=== PATIENT | female | born 1970 | race Caucasian/White ===

== ENCOUNTER → 2016-12-27 | Day surgery (SDC) | payer OTHER ==
[2016-12-27] VITALS (11 sets, daily range): BP systolic 97–127; BP diastolic 58–85; PULSE 63–75; RESP 12–24; O2SAT 93–97
[~2016-12-27] VITALS: Ht 160 cm; Wt 105.0 kg
[~2016-12-27] MED LIST: 0.9% Sodium Chloride 1,000 ML IV ONE; ASCO-294 PO; CETI-343 PO; CHOL5000 PO; CITA40TA13 PO; Heparin 1,000 Unit/mL 10 mL Inj ONE; Heparin 1,000 Units/500 mL NS Premix IV ONE; Heparin 10,000 Unit/1,000 mL NS Premix IV ONE; KLO5T PO; Nitroglycerin 50,000 mcg/250 mL D5W Premix IV ONE; Verapamil 2.5 mg/mL 2 mL Inj ONE; ZINC50TA56 PO; [UNRECOGNIZED DRUG - OTHER] PO; fentaNYL-PF 50 mCg/mL 2 mL Inj ONE
[2016-12-27 11:51] LABS: BASOPHILS % (AUTO) 0.6 % (0-3); EOSINOPHILS % (AUTO) 3.1 % (0-5); MONOCYTES % (AUTO) 7.2 % (4-12); Mean Corpuscular Hemoglobin 29.3 pg (27.0-35.0); Mean Corpuscular Volume 86.9 fL (81-100); NEUTROPHILS % (AUTO) 60.1 % (40-74); Platelet Count 287 bil/L (150-400)
--- NOTE | 2016-12-27 12:05 | NUR ---
Admit Admitted to [facility] about 1110. VSS. Tele SR. Denies pain. IV started and labs sent. IVT called for second IV. See EMR for further info and assessment. Procedure and recovery reviewed and verbalizes understanding. Awaiting landscape laborer.
--- NOTE | 2016-12-27 15:08 | NUR ---
Received To collaborative teacher about 1300. Returned at 1400. VSS. Tele SR. TR band on with 13 cc. Palpable pulse, C/O slight numbness that is spontaneously resolving. No bleeding or hematoma. C/O 6 10 soreness at site. Tylenol 975mg po given. Taking po well. IVF infusing per orders. Family at bedside. Dozing intermittently. Continue to monitor per orders.
--- NOTE | 2016-12-27 17:47 | NUR ---
Recovery/Discharge TR band pressure decreased gradually from 1600 to 1700 and removed at 1700. No bleeding or hematoma. VSS. Tele SR. Up and ambulated in urban without change. Denied dizziness. Discharge instructions given, see sheets, verbalizes understanding. IVs discontinued intact. Discharged home with all belongings and family in no distress at 1730.
--- NOTE | 2016-12-30 01:51 | PCM.CVCATH ---
Cardiac Cath Report Date of Service Dec 27, 2016 Primary Indication abnormal stress echo; chest pain Procedure left heart cath - selective coronary angiograms right radial approach vascular access via ultrasound guidance terumo TR band closure device Cath:Lt heart Vascular Access Right radial artery closure with TR band Diagnostic Catheters Left main: [place] 4.5, 6 Fr RCA: JL3.5, 6 Fr Procedure Details Coronary angiography details: The patient was brought to the cardiac catheterization lab in the fasting state. Patient was laid supine on the cardiac catheterization table and the right forearm was prepped and draped in the usual sterile fashion. One percent Xylocaine was infiltrated over the right radial artery. Vascular access was then achieved under ultrasound guidance. Guide wire was used to advance the catheter through the sheath and up into aortic sinuses. After coronary angiography was completed, guide wire was advanced through the catheter ahead of the tip of the catheter and the guide wire along with the catheter were pulled together out of the sheath. Findings 1) Coronary angiography: Right dominance a. Left main is angiographically normal. It gives rise to LAD and LCX; excellent blow back and no dampening on engagement. b. LAD is angiographically normal; it gives rise to 3 medium size diagonal branches. Distal LAD appears small and diffusely diseased. c. LCx is angiographically normal; this is a non-dominant vessel; it gives rise to 2 small OM branches and one large third OM branch. No obstructive lesions are seen. d. RCA is angiographically normal. It gives rise to PDA and PL branches; no obstructive disease seen. Complications There were no periprocedural complications identified. Summary False positive stress echo No hemodynamically significant epicardial CAD Diffusely diseased distal LAD Recommendations therapeutic lifestyle change smoking cessation consider statin - currently pt declines Ashtyn Corona MD Dec 30, 2016 01:51
== END | disposition home or self-care (01) ==
LOC: SOUO 01:14
PROVIDERS: ATTEND Internal Medicine Cardiovascular Disease
DX: R94.39 Abnormal result of other cardiovascular function study (principal); R07.9 Chest pain, unspecified; Z82.49 Family history of ischemic heart disease and other diseases of the circulatory system; F17.210 Nicotine dependence, cigarettes, uncomplicated; E78.5 Hyperlipidemia, unspecified
CPT/HCPCS: 36415; 80048; 85025; 93005; 93454; 99152; 99153; C1769; C1887; C1894; J1644; J2060; J2250; J3010; J7030; Q9967